=== PATIENT | female | born 1945 | race Two or more races ===

== ENCOUNTER 2020-03-26 06:00 | Day surgery (SDC) | payer OTHER ==
[~2020-03-26 06:00] MED LIST: CILOSTAZOL100 MG PO; GLIPIZIDE10 MG PO; LEVO-T137 MCG PO; METFORMIN HCL1000 M2 PO; NORVASC5 MG PO; VASOFLEX HD CA1 EACH PO; ZOCOR40 MG PO
[2020-03-26] MEDS ORDERED: PERCOCET 5-3251 EACH PO (09:30)
[2020-03-26] MEDS ORDERED: COLACE100 MG PO (09:52)
[2020-03-26] MEDS ORDERED: NEURONTIN300 MG PO (09:52)
== END 2020-03-26 13:30 | disposition home or self-care (01) ==
LOC: CIR.AMB 06:00
PROVIDERS: ATTEND Surgery
DX: K64.8 Other hemorrhoids (principal); K64.4 Residual hemorrhoidal skin tags

== ENCOUNTER 2021-04-26 08:05 | Day surgery (SDC) | payer OTHER ==
[~2021-04-26 08:05] MED LIST changes: +COLACE100 MG PO; +NEURONTIN300 MG PO; +PERCOCET 5-3251 EACH PO
[2021-04-26] MEDS ORDERED: MACROBID 100 M100 MG PO (12:41)
[2021-04-26] MEDS ORDERED: ACETAMINOPHEN-1 EAC2 PO (12:42)
== END 2021-04-26 14:50 | disposition home or self-care (01) ==
LOC: CIR.AMB 08:05
PROVIDERS: ATTEND Obstetrics & Gynecology Gynecology
DX: N81.3 Complete uterovaginal prolapse (principal); Z20.822 Contact with and (suspected) exposure to COVID-19